=== PATIENT | male | born 1965 | race Hispanic/Latino ===

== ENCOUNTER 2020-05-18 15:43 | Inpatient (IN) | payer BC ==
[2020-05-18 17:16] LABS: Absolute Lymphocytes (CBC) 2.8 K/uL (0.7-4.9); Basophils % 0.5 % (0-1.3); Hematocrit 41.5 % (39.6-49.0); Lymphocytes % 14.5 % (15.3-44.8); MPV 9.3 fL (7.6-11.3); RBC Red Blood Cell Count 4.64 M/uL (4.33-5.43)
[2020-05-18 17:35] LABS: ALT/SGPT 26 U/L (12-78); AST/SGOT 17 U/L (15-37); Albumin 3.1 g/dL (3.4-5.0); Alkaline Phosphatase 99 U/L (45-117); BUN Blood Urea Nitrogen 17 mg/dL (7-18); Bicarbonate 25 mmol/L (21-32); Bilirubin Direct < 0.1 mg/dL (0-0.2); Bilirubin Total 0.4 mg/dL (0.2-1.0); Glucose Level 177 mg/dL (74-106); Lipase 110 U/L (73-393); Potassium 3.9 mmol/L (3.5-5.1); Protein, Total 7.1 g/dL (6.4-8.2); Sodium Level 136 mmol/L (136-145)
[2020-05-18] MEDS ORDERED: NA CHLORIDE 0.9% 1,000 ML ONE (17:37)
[2020-05-18] MEDS ORDERED: METRONIDAZOLE 500mg IVPB 500 MG/100 ML BAG IV ONE (18:25)
[2020-05-18] MEDS ORDERED: CIPROFLOXACIN 400mg IV 400 MG/200 ML BAG IV ONE (18:25)
--- NOTE | 2020-05-18 18:28 | RAD REPORT ---
EXAM DESCRIPTION: CT - Abdomen Pelvis W Contrast - 05/18/2020 6:07 pm CLINICAL HISTORY: diarrhea;Abd pain COMPARISON: No comparisons TECHNIQUE: Biphasic, helical CT imaging of the abdomen and pelvis was performed following 100 ml non -ionic IV contrast. No oral contrast. All CT scans are performed using dose optimization technique as appropriate and may include automated exposure control or mA/KV adjustment according to patient size. FINDINGS: No suspicious findings in the lung bases. Liver shows fatty infiltration pattern mild in degree. No focal liver lesion. Spleen and pancreas ana rosa w no suspicious findings. Gallbladder is contracted. No acute gallbladder or biliary tree abnormality . Symmetric renal function is seen with no hydronephrosis or suspicious renal mass. No pyelonephritis o r acute parenchymal process. No bladder abnormalities. No adrenal abnormalities. No gastric dilatation or gastric wall thickening. No acute small bowel finding. Moderate wall thicken ing and edema changes are present in the cecum and ascending colon with associated edema in the adjac ent fat. The appendix is normal. Small right lower quadrant mesenteric lymph nodes are present. Mild colon wall thickening and edema changes are present throughout the remainder of the colon. Adjacent e edd and stranding are minimal. No free air, free fluid or pneumatosis. Small fat only inguinal hernias are present. Patient has a v nelly minimal 10 mm umbilical hernia. No omental thickening. No bulky lymphadenopathy. No suspicious bony findings. IMPRESSION: Pancolitis pattern is present. Findings are [id number] severity in the cecum and a scending colon with mild severity changes from hepatic flexure to rectum. No abscess, free air or surgically emergent finding. Mild fatty infiltration of the liver.
--- NOTE | 2020-05-18 18:39 | ER ---
Nurse's Notes [facility] Name: Cece Barrios Age: 55 yrs Sex: Male : 1965 Arrival Date: 05/18/2020 Time: 15:46 Bed 23 Private MD: Tamika Miranda F Diagnosis: Pancolitis;Failure of outpatient therapy for colitis;Dehydration Presentation: 05/18 16:12 Chief complaint: Patient states: Diarrhea x 1 week, worse this morning. Took OTC meds, ca1 no relief. Reports nausea and abdominal cramps. Denies vomiting. Denies fever. Coronavirus screen: Proceed with normal triage. Patient denies a cough. Patient denies shortness of breath or difficulty breathing. Patient denies measured and/or subjective temperature greater than 100.4F prior to today's visit. Patient denies travel on a cruise ship or to a country the [facility] currently lists as an affected area. Patient denies contact with known and/or suspected case of COVID-19. Ebola Screen: Patient negative for fever greater than or equal to 101.5 degrees Fahrenheit, and additional compatible Ebola Virus Disease symptoms Patient denies exposure to infectious person. Patient denies travel to an Ebola-affected area in the 21 days before illness onset. No symptoms or risks identified at this time. Initial Sepsis Screen: Does the patient meet any 2 criteria? No. Patient's initial sepsis screen is negative. Does the patient have a suspected source of infection? No. Patient's initial sepsis screen is negative. Risk Assessment: Do you want to hurt yourself or someone else? Patient reports no desire to harm self or others. Onset of symptoms was May 18, 2020. 16:12 Method Of Arrival: Ambulatory ca1 16:12 Acuity: AGUSTIN 3 ca1 Historical: - Allergies: 16:15 No Known Allergies; ca1 - Home Meds: 19:44 basaglar 70 unit daily [Active]; metformin 1,000 mg Oral tab 1 tab 2 times per day iw [Active]; Januvia 100 mg oral tab 1 tab once daily [Active]; atorvastatin 80 mg oral tab 1 tab once daily [Active]; lisinopril 20 mg Oral tab 1 tab once daily [Active]; - PMHx: 16:15 Diabetes - IDDM; Hypertension; High Cholesterol; ca1 - PSHx: 16:15 None; ca1 - Immunization history:: Adult Immunizations up to date. - Social history:: Smoking status: Patient reports the use of cigarette tobacco products, smokes one-half pack cigarettes per day. - Family history:: not pertinent. - Hospitalizations: : No recent hospitalization is reported. Screenin:51 Abuse screen: Denies threats or abuse. Denies injuries from another. Nutritional iw screening: No deficits noted. Tuberculosis screening: No symptoms or risk factors identified. Fall Risk None identified. Assessment: 16:44 General: Appears in no apparent distress. Behavior is calm, cooperative. Pain: iw Complains of pain in right lower quadrant and left lower quadrant. Neuro: Level of Consciousness is awake, alert, obeys commands, Oriented to person, place, time, situation. Cardiovascular: Patient's skin is warm and dry. Respiratory: Respiratory effort is even, unlabored. GI: Bowel sounds present X 4 quads. Abd is soft X 4 quads Reports diarrhea. Derm: Skin is intact, is healthy with good turgor. Musculoskeletal: Range of motion: intact in all extremities. 17:50 Reassessment: Patient appears in no apparent distress at this time. Patient and/or iw family updated on plan of care and expected duration. Pain level reassessed. Patient is alert, oriented x 3, equal unlabored respirations, skin warm/dry/pink. 21:26 Reassessment: Patient appears in no apparent distress at this time. Patient and/or sg family updated on plan of care and expected duration. Pain level reassessed. Patient is alert, oriented x 3, equal unlabored respirations, skin warm/dry/pink. awaiting a call back from receiving nurse, pt stated understanding. Vital Signs: 16:12 BP 128 / 81; Pulse 100; Resp 15 S; Temp 97.6(TE); Pulse Ox 98% on R/A; Weight 129.27 kg ca1 (R); Height 5 ft. 11 in. (180.34 cm) (R); Pain 8/10; 16:12 Body Mass Index 39.75 (129.27 kg, 180.34 cm) ca1 ED Course: 15:46 Patient arrived in ED. as 15:46 Tamika Miranda MD is Private Physician. as 16:14 Triage completed. ca1 16:15 Arm band placed on right wrist. ca1 16:38 Adelso, Arely, RN is Primary Nurse. iw 16:44 Arias Sofia MD is Attending Physician. rn 17:00 Patient has correct armband on for positive identification. iw 17:14 Initial lab(s) drawn, by me, sent to lab. Inserted saline lock: 20 gauge in right iw antecubital area, using aseptic technique. Blood collected. 18:07 CT Abd/Pelvis - IV Contrast Only In Process Unspecified. EDMS 18:37 Tamika Miranda MD is Hospitalizing Provider. rn 19:00 No provider procedures requiring assistance completed. Patient admitted, IV remains in iw place. 19:47 Primary Nurse role handed off by Arely Darden RN sg 19:47 Harshil Max RN is Primary Nurse. sg Administered Medications: 17:30 Drug: NS 0.9% 1000 ml Route: IV; Rate: 1000 ml; Site: right antecubital; iw 19:00 Follow up: Response: No adverse reaction; IV Status: Completed infusion; IV Intake: sg 990ml 18:22 Drug: Cipro 400 mg Volume: 200 ml; Route: IVPB; Infused Over: 60 mins; Site: right iw antecubital; 19:30 Follow up: Response: No adverse reaction; IV Status: Completed infusion sg 18:22 Drug: Flagyl 500 mg Volume: 100 ml; Route: IVPB; Rate: 200 ml/hr; Infused Over: 30 iw mins; Site: right antecubital; 19:00 Follow up: Response: No adverse reaction; IV Status: Completed infusion sg 19:25 Drug: D5-1/2 NS 1000 ml Route: IV; Rate: 125 ml/hr; Site: right antecubital; sg 19:45 CANCELLED (Other Intervention Used): D5 -1/4 NS 1000 ml IV at 125 ml/hr continuous sg 21:10 Drug: morphine 4 mg Route: IVP; Site: right antecubital; sg 21:10 Drug: Zofran (Ondansetron) 4 mg Route: IVP; Site: right antecubital; sg Intake: 19:00 IV: 990ml; Total: 990ml. sg Outcome: 18:38 Decision to Hospitalize by Provider. rn 19:00 Admitted to iw 19:00 Condition: good 19:00 Discharge instructions given to patient, Instructed on the need for admit. iw 21:33 Patient left the ED. sg Signatures: Dispatcher [employer] EDMS Harshil Max RN RN Leonora Shepherd Irene, RN RN iw Arias Sofia MD MD rn Acob, Cheryl, RN RN ca1 Corrections: (The following items were deleted from the chart) 19:45 19:26 D5 -11/11 NS 1000 ml IV at 125 ml/hr in right antecubital rony
--- NOTE | 2020-05-18 18:39 | EDPHYS ---
Physician Documentation [facility] Name: Cece Barrios Age: 55 yrs Sex: Male : 1965 Arrival Date: 05/18/2020 Time: 15:46 Bed 23 Private MD: Tamika Miranda F ED Physician Arias Sofia HPI: 05/18 16:58 This 55 yrs old Male presents to ER via Ambulatory with complaints of rn Abdominal Cramping, Diarrhea. 16:58 The patient presents with abdominal pain that is diffuse. Onset: The symptoms/episode rn began/occurred 2 week(s) ago. The symptoms do not radiate. Associated signs and symptoms: Pertinent positives: diarrhea, Pertinent negatives: fever. The symptoms are described as achy. Modifying factors: The symptoms are alleviated by nothing, the symptoms are aggravated by nothing. Severity of pain: At its worst the pain was mild in the emergency department the pain is unchanged. The patient has not experienced similar symptoms in the past. The patient has not recently seen a physician. Reports abd cramping and non-bloody diarrhea for 2 weeks, given amoxicillin for UTI and diarrhea at urgent care, completed treatment, felt like slowed it down but didn't resolve, + diffuse abd cramps, no focal pain, no fever, + tested for COVID at beginning and was negative, no sick contacts. No vomiting. . Historical: - Allergies: 16:15 No Known Allergies; ca1 - Home Meds: 19:44 basaglar 70 unit daily [Active]; metformin 1,000 mg Oral tab 1 tab 2 times per day iw [Active]; Januvia 100 mg oral tab 1 tab once daily [Active]; atorvastatin 80 mg oral tab 1 tab once daily [Active]; lisinopril 20 mg Oral tab 1 tab once daily [Active]; - PMHx: 16:15 Diabetes - IDDM; Hypertension; High Cholesterol; ca1 - PSHx: 16:15 None; ca1 - Immunization history:: Adult Immunizations up to date. - Social history:: Smoking status: Patient reports the use of cigarette tobacco products, smokes one-half pack cigarettes per day. - Family history:: not pertinent. - Hospitalizations: : No recent hospitalization is reported. ROS: 16:58 Constitutional: Negative for fever, chills, and weight loss, Eyes: Negative for injury, rn pain, redness, and discharge, Cardiovascular: Negative for chest pain, palpitations, and edema, Respiratory: Negative for shortness of breath, cough, wheezing, and pleuritic chest pain, Abdomen/GI: Negative for nausea, vomiting MS/Extremity: Negative for injury and deformity, Skin: Negative for injury, rash, and discoloration, Neuro: Negative for headache, weakness, numbness, tingling, and seizure. Exam: 16:58 Constitutional: This is a well developed, well nourished patient who is awake, alert, rn and in no acute distress. Ambulatory to room without difficulty or assistance. Head/Face: Normocephalic, atraumatic. Cardiovascular: Regular rate and rhythm. No pulse deficits. Respiratory: No increased work of breathing, no retractions or nasal flaring. Abdomen/GI: soft, non-tender, no masses or guarding Skin: Warm, dry with normal turgor. Normal color with no rashes, no lesions, and no evidence of cellulitis. MS/ Extremity: Pulses equal, no cyanosis. Neurovascular intact. Full, normal range of motion. Equal circumference. Neuro: Awake and alert, GCS 15, oriented to person, place, time, and situation. Cranial nerves II-XII grossly intact. Motor strength 5/5 in all extremities. Sensory grossly intact. Cerebellar exam normal. Normal gait. Vital Signs: 16:12 BP 128 / 81; Pulse 100; Resp 15 S; Temp 97.6(TE); Pulse Ox 98% on R/A; Weight 129.27 kg ca1 (R); Height 5 ft. 11 in. (180.34 cm) (R); Pain 8/10; 16:12 Body Mass Index 39.75 (129.27 kg, 180.34 cm) ca1 MDM: 16:44 Patient medically screened. rn 18:36 Differential diagnosis: diverticulitis, non-specific abd pain, panoclitis. Data rn reviewed: vital signs, nurses notes, lab test result(s), radiologic studies, CT scan, and as a result, I will admit patient. Counseling: I had a detailed discussion with the patient and/or guardian regarding: the historical points, exam findings, and any diagnostic results supporting the discharge/admit diagnosis, lab results, radiology results, the need for further work-up and treatment in the hospital. Response to treatment: the patient's symptoms have mildly improved after treatment, and as a result, I will admit patient. Admission orders: after a detailed discussion of the patient's condition and case, the admit orders are written by me. ED course: Pt worse after oral abx at home, CT now shows pancolitis, nonsurgical, 18k wbc, will admit to Dr. Miranda for IV abx. . 05/18 16:29 Order name: Glucose, Ancillary Testing; Complete Time: 16:55 EDMS 05/18 16:55 Order name: Basic Metabolic Panel; Complete Time: 17:39 rn 05/18 16:55 Order name: CBC with Diff; Complete Time: 17:18 rn 05/18 16:55 Order name: Hepatic Function; Complete Time: 17:39 rn 05/18 16:55 Order name: Lipase; Complete Time: 17:39 rn 05/18 16:56 Order name: Rotavirus Antigen rn 05/18 16:55 Order name: CT Abd/Pelvis - IV Contrast Only; Complete Time: 18:29 rn 05/18 16:56 Order name: Stool Culture rn 05/18 16:55 Order name: IV Saline Lock; Complete Time: 17:14 rn 05/18 16:55 Order name: Labs collected and sent; Complete Time: 17:14 rn Administered Medications: 17:30 Drug: NS 0.9% 1000 ml Route: IV; Rate: 1000 ml; Site: right antecubital; iw 19:00 Follow up: Response: No adverse reaction; IV Status: Completed infusion; IV Intake: sg 990ml 18:22 Drug: Cipro 400 mg Volume: 200 ml; Route: IVPB; Infused Over: 60 mins; Site: right iw antecubital; 19:30 Follow up: Response: No adverse reaction; IV Status: Completed infusion sg 18:22 Drug: Flagyl 500 mg Volume: 100 ml; Route: IVPB; Rate: 200 ml/hr; Infused Over: 30 iw mins; Site: right antecubital; 19:00 Follow up: Response: No adverse reaction; IV Status: Completed infusion sg 19:25 Drug: D5-1/2 NS 1000 ml Route: IV; Rate: 125 ml/hr; Site: right antecubital; sg 19:45 CANCELLED (Other Intervention Used): D5 -1/4 NS 1000 ml IV at 125 ml/hr continuous sg 21:10 Drug: morphine 4 mg Route: IVP; Site: right antecubital; sg 21:10 Drug: Zofran (Ondansetron) 4 mg Route: IVP; Site: right antecubital; sg Disposition: 05/18/20 18:38 Hospitalization ordered by Tamika Miranda for Inpatient Admission. Preliminary diagnosis are Pancolitis, Failure of outpatient therapy for colitis, Dehydration. - Bed requested for Telemetry/MedSurg (Inpatient). - Status is Inpatient Admission. sg - Condition is Stable. - Problem is new. - Symptoms have improved. Signatures: Dispatcher [employer] EDMS Harshil Max RN RN sg Arely Darden RN RN iw Arias Sofia MD MD rn Garcia, Cindy, RN RN Adina Haro RN RN ca1 Corrections: (The following items were deleted from the chart) 19:45 19:25 D5 -1/4 NS 1000 ml IV at 125 ml/hr continuous ordered. sg 19:45 19:26 D5 -1/4 NS 1000 ml IV at 125 ml/hr continuous given. iw sg 19:45 19:45 D5 -1/4 NS 1000 ml IV at 125 ml/hr continuous ordered. sg sg 21:10 18:38 Hospitalization Ordered by Tamika Miranda MD for Inpatient Admission. Preliminary cg diagnosis is Pancolitis; Failure of outpatient therapy for colitis; Dehydration. Bed requested for Telemetry/MedSurg (Inpatient). Status is Inpatient Admission. Condition is Stable. Problem is new. Symptoms have improved. rn 21:33 21:10 05/18/2020 18:38 Hospitalization Ordered by Tamika Miranda MD for Inpatient sg Admission. Preliminary diagnosis is Pancolitis; Failure of outpatient therapy for colitis; Dehydration. Bed requested for Telemetry/MedSurg (Inpatient). Status is Inpatient Admission. Condition is Stable. Problem is new. Symptoms have improved. cg
[2020-05-18] MEDS ORDERED: D5 0.45 NS 1,000 ML IV ONE (19:33)
[2020-05-18] MEDS ORDERED: MORPHINE 4 MG/ML SYR ONE (21:10)
[2020-05-18] MEDS ORDERED: ONDANSETRON 4 MG/2 ML VIAL ONE (21:10)
[2020-05-18] MEDS: D5 0.45 NS 1,000 ML IV SCH (22:09)
[2020-05-18] MEDS ORDERED: ONDANSETRON 4 MG/2 ML VIAL IV PRN (22:09)
[2020-05-18 22:16] VITALS: BMI 37.3
[2020-05-19] MEDS: MORPHINE 4 MG/ML SYR IV PRN ×3 (00:48→15:25)
[2020-05-19] MEDS: METRONIDAZOLE 500mg IVPB 500 MG/100 ML BAG IV SCH ×3 (03:42→17:50)
[2020-05-19] MEDS: D5 0.45 NS 1,000 ML IV SCH (03:53)
[2020-05-19] MEDS: CIPROFLOXACIN 400mg IV 400 MG/200 ML BAG IV SCH ×3 (05:24→20:34)
[2020-05-19 06:24] LABS: Absolute Lymphocytes (CBC) 2.6 K/uL (0.7-4.9); Basophils % 0.3 % (0-1.3); Hematocrit 36.8 % (39.6-49.0); Lymphocytes % 15.6 % (15.3-44.8); MPV 9.1 fL (7.6-11.3); RBC Red Blood Cell Count 4.12 M/uL (4.33-5.43)
[2020-05-19 06:40] LABS: Potassium 3.8 mmol/L (3.5-5.1)
[2020-05-19] MEDS ORDERED: NA CHLORIDE 0.9% 1,000 ML IV SCH (11:00)
[2020-05-19] MEDS ORDERED: NA CHLORIDE 0.9% 500 ML IV ONE (13:21)
[2020-05-19] MEDS: NA CHLORIDE 0.9% 1,000 ML IV SCH (13:44)
[2020-05-19] MEDS ORDERED: GLUCAGON 1 MG/VIAL IM PRN (20:22)
[2020-05-19] MEDS ORDERED: D50W 25 GM/50 ML SYRINGE/VIAL IV PRN (20:22)
--- NOTE | 2020-05-19 20:48 | HP ---
Date of Admission: 05/18/2020 History Of Present Illness: A 55-year-old male came to the emergency room because of worsening diarr hea and started feeling tired. His diarrhea started about 10 days ago. He went to the Urgent Care. He was checked for COVID virus, but that was negative and was put on some kind of antibiotics, he do es not recall the name. However, his diarrhea kept getting worse. The patient had some abdominal cr amps, but not that abdominal pain. He had no fever, no chills. No shortness of breath. No cough. No upper respiratory symptoms. He describes his diarrhea as watery to soft, 4-5 times a day. Review of Systems: Gastrointestinal: As above. He had no nausea, no vomiting. Cardiovascular: No complaints. Respiratory: No complaints. Genitourinary: No complaints. Skeletomuscular: No complaints. Neurological: No complaints. Past Medical History: 1.Type 2 diabetes. 2.Hyperlipidemia. 3.Hypertension. Social History: No smoking, alcohol, or drug abuse history. Family History: Noncontributing. Medications: Include, 1.Basaglar insulin and metformin 1000 mg b.i.d. 2.Januvia 100 mg daily. 3.Atorvastatin 80 mg p.o. daily. 4.Lisinopril 20 mg p.o. daily. Allergies: NO KNOWN DRUG ALLERGIES. Physical Examination: Vital Signs: Blood pressure is 100/60, pulse 79, temperature 98.8. Heart: Regular rate and rhythm. Chest: Clear to auscultation. Abdomen: Soft, nontender. No rigidity. No rebound. Bowel sounds are normoactive. Extremities: No edema. No cyanosis. Peripheral pulses are felt. Neurologic: Alert, oriented, nonfocal. Grossly intact. Imaging: Abdominal CT scan showed a picture of pancolitis. Chest x-ray, no acute pathology. Laboratory Data: White cell count 19.6, dropped down to 16.4; hemoglobin 12.6; hematocrit 36.8; plat elets 416. Chemistry; BUN 11, creatinine 1.09, GFR 70. His BUN was 17 and creatinine was 1.34 yeste rday. Assessment And Plan: 1.Pancolitis. Rotavirus test was negative. Coronavirus disease test is still pending. The patient may have bacterial infection. He was started on Cipro and Flagyl IV antibiotics. We will send the stools for C difficile toxin and we will put him on IV fluids and clear liquid diet. We will monitor his blood sugar fingersticks, put him on a regular insulin sliding scale. 2.Hypotension, likely due to volume depletion and dehydration. The patient was put on IV fluids. 3.We will hold on his metformin, Januvia, and Lantus, put him on a sliding scale as mentioned. 4.Hypotension, as mentioned. We will monitor that, the patient has been put on IV fluids. Look ord ers for details. MFS/MODL Voice ID: [id number]
[2020-05-19] MEDS: INSULIN -REGULAR HUMAN 50 UNIT/0.5 ML ML SQ SCH (20:49)
[2020-05-20] MEDS: METRONIDAZOLE 500mg IVPB 500 MG/100 ML BAG IV SCH ×3 (03:09→16:38)
[2020-05-20] MEDS: NA CHLORIDE 0.9% 1,000 ML IV SCH ×3 (03:14→19:21)
[2020-05-20] MEDS: MORPHINE 4 MG/ML SYR IV PRN (03:14)
[2020-05-20 06:05] LABS: Absolute Lymphocytes (CBC) 2.2 K/uL (0.7-4.9); Basophils % 0.8 % (0-1.3); Lymphocytes % 11.5 % (15.3-44.8); MPV 9.9 fL (7.6-11.3); RBC Red Blood Cell Count 4.23 M/uL (4.33-5.43)
[2020-05-20] MEDS: INSULIN -REGULAR HUMAN 50 UNIT/0.5 ML ML SQ SCH ×4 (07:30→20:15)
[2020-05-20 08:10] LABS: Potassium 3.9 mmol/L (3.5-5.1)
[2020-05-20] MEDS: ATORVASTATIN 80 MG TAB PO SCH (09:44)
[2020-05-20] MEDS: CIPROFLOXACIN 400mg IV 400 MG/200 ML BAG IV SCH ×2 (09:44→20:11)
--- NOTE | 2020-05-20 18:34 | PN ---
Subjective: The patient has no new complaint. He had 2 bowel motions yesterday, soft. Objective: Vital signs: His blood pressure 115/60, pulse 74, temperature 98.7. Heart: Regular rate and rhythm. Chest: Clear to auscultation. Abdomen: Soft, benign, nontender. Bowel sounds are active. Extremities: No edema, cyanosis. Peripheral pulses are felt. Neurological: Alert, oriented, nonfocal. Grossly intact. Laboratory Data: CBC showed white cell count of 18.9, 79.4 is neutrophils, hemoglobin 12.9, hematocr it 38, and platelets 222. Chem-7 noted. GFR at 80. Blood sugar fingersticks noted between 136-200. Assessment/plan: 1.Joe colitis with diarrhea, seems to be subsiding. The patient is clinically stable. 2.Dehydration, improved with hydration. 3.We will ask Gastroenterology to see the patient for his pancolitis, he is still having elevated wh ite cell count and we will keep him on the current antibiotics. Look orders for details. MFS/MODL Voice ID: [id number] Report ID: [id number]
[2020-05-20 20:46] VITALS: O2SAT 95
[2020-05-21] MEDS: METRONIDAZOLE 500mg IVPB 500 MG/100 ML BAG IV SCH ×2 (00:03→09:42)
[2020-05-21] MEDS: NA CHLORIDE 0.9% 1,000 ML IV SCH (05:55)
[2020-05-21 06:00] LABS: Basophils % 0.7 % (0-1.3); Hematocrit 37.6 % (39.6-49.0); Lymphocytes % 13.2 % (15.3-44.8); MPV 9.4 fL (7.6-11.3); RBC Red Blood Cell Count 4.18 M/uL (4.33-5.43)
[2020-05-21] MEDS: INSULIN -REGULAR HUMAN 50 UNIT/0.5 ML ML SQ SCH ×2 (07:30→11:30)
[2020-05-21] MEDS: CIPROFLOXACIN 400mg IV 400 MG/200 ML BAG IV SCH (09:42)
[2020-05-21] MEDS: ATORVASTATIN 80 MG TAB PO SCH (09:43)
[2020-05-21 12:34] VITALS: BP 151/66; TEMP 97.6
--- NOTE | 2020-05-22 05:51 | DS ---
Date of Discharge: 05/21/2020 History: A 55-year-old male, who was admitted to the hospital because of diarrhea over the past 10 d ays that was gradually worsened. Past Medical History: As per admit note. Social History: As per admit note. Family History: As per admit note. Medications: As per admit note. Allergies: PER ADMIT NOTE. Physical Examination: As per admit note. Diagnostic Data: As per admit note. Hospital Course: The patient was admitted to the hospital. He was checked for rotavirus was negativ e, COVID-19 negative, and stool culture was negative. His CT scan showed pancolitis, nonspecific. H owever, he was put on antibiotics of Flagyl and Cipro and that controlled his diarrhea to where it re solved over the past 24 hours. He had 1 solid BM and he had no abdominal pain. No fever or chills. He was doing well. He was also given IV fluids for an element of volume depletion from his diarrhea and that improved his kidney functions and GFR. He also had tolerated liquid diet well after that a nd his white cell count dropped at 15.2 with hemoglobin 12.7, hematocrit 37.6, and platelets 230. We will also monitor his blood sugar fingersticks and put him on regular insulin sliding scale. At thi s time, we think that the patient is stable enough to be discharged home on oral antibiotics and resu me his home medications, and oral antibiotics have basically Flagyl and Cipro for a week. We wanted Gastroenterology to see him over. We can arrange for him to be seen by Gastroenterology for possible colonoscopy as an outpatient. The patient to follow up with me in the next few days. Look discharge orders for details. MFS/MODL Voice ID: [id number] Report ID: [id number]
== END 2020-05-21 15:09 | disposition home or self-care (01) | DRG 387 ==
LOC: ER 15:43 → ERHOLD 18:40 → 2ND 21:36
PROVIDERS: ADMIT Internal Medicine; ATTEND Internal Medicine
DX: K51.00 Ulcerative (chronic) pancolitis without complications (principal); E86.0 Dehydration; R19.7 Diarrhea, unspecified; I95.9 Hypotension, unspecified; E11.9 Type 2 diabetes mellitus without complications; E78.5 Hyperlipidemia, unspecified; I10 Essential (primary) hypertension; Z11.59 Encounter for screening for other viral diseases
CPT/HCPCS: 36415; 74177; 80048; 80076; 82947; 83605; 83690; 85025; 87045; 87046; 87425; 96361; 96365; 96368; 96375; 99285; J0744; J2405; J7030; J7040; J7799; Q9967; U0002